=== PATIENT | male | born 1965 | race Caucasian/White ===

== ENCOUNTER → 2023-01-13 | Outpatient (REF) | payer BC | LOC: M SFHCDERM 18:06 | PROVIDERS: ATTEND Nurse Practitioner Family | DX: D49.2 Neoplasm of unspecified behavior of bone, soft tissue, and skin (principal) ==

== ENCOUNTER → 2023-02-14 | Outpatient (REF) | payer BC | LOC: M LAB REF 18:07 | PROVIDERS: ATTEND Surgery | DX: D49.2 Neoplasm of unspecified behavior of bone, soft tissue, and skin (principal) ==